=== PATIENT | female | born 1955 | race Two or more races ===

== ENCOUNTER 2021-06-30 05:30 | Day surgery (SDC) | payer OTHER ==
[~2021-06-30 05:30] MED LIST: ALTACE5 MG PO; FORTAMET500 MG PO; OMEGA 3 1,0001 EACH PO; VITAMIN D3 PO
[2021-06-30] MEDS ORDERED: PERCOCET 5-3251 EACH PO (09:01)
[2021-06-30] MEDS ORDERED: RECTICARE30 GM TOP (09:01)
== END 2021-06-30 13:25 | disposition home or self-care (01) ==
LOC: CIR.AMB 05:30
PROVIDERS: ATTEND Surgery
DX: D12.8 Benign neoplasm of rectum (principal)